=== PATIENT | male | born 1945 | race Caucasian/White ===

== ENCOUNTER 2017-10-22 09:11 | Emergency (ER) | payer OTHER ==
[~2017-10-22] VITALS: Ht 170.2 cm; Wt 67.0 kg
[2017-10-22] MEDS ORDERED: SODIUM CHLORIDE 0.9% 1,000 ML IV ONE (09:40)
[2017-10-22] MEDS ORDERED: MORPHINE SULFATE 4 MG/ML CPJ (NOT FOR IM USE) IV STA (09:40)
[2017-10-22] MEDS ORDERED: ONDANSETRON HCL 4MG/2ML VIAL IV STA (09:40)
[2017-10-22] MEDS ORDERED: LIDOCAINE HCL 1%/EPI 1:200,000 30 ML VIAL MC ONE (09:45)
[2017-10-22] MEDS ORDERED: TETANUS, DIPHTHERIA, PERTUSSIS VAC/PF 0.5ML (>7YR OLD) IM ONE (09:45)
[2017-10-22] MEDS ORDERED: BACITRACIN ZINC OINT UDPKT TOP ONE (09:45)
[2017-10-22 10:00] LABS: BASOPHILS % 0.4 % (0.0-2.0); EOSINOPHILS % 0.4 % (0.0-5.0); HEMATOCRIT. 38.9 % (42.0-52.0); HEMOGLOBIN. 12.9 g/dL (14.0-18.0); LYMPHOCYTES % 12.9 % (20.0-50.0); MEAN CORPUSCULAR HEMOGLOBIN 33.2 pg (28.0-32.0); MEAN CORPUSCULAR VOLUME 100.2 fL (80.0-94.0); MEAN PLATELET VOLUME 8.2 fl (7.4-10.4); MONOCYTES % 7.1 % (2.0-8.0); NEUTROPHILS % 79.2 % (40.0-76.0); PLATELET 155 x1000/uL (130-400); RED BLOOD CELL COUNT 3.89 mill/uL (4.7-6.1); RED CELL DISTRIBUTION WIDTH 13.8 % (11.6-14.6)
[2017-10-22 10:06] LABS: CHLORIDE 107 mEq/L (98-107)
[2017-10-22] MEDS ORDERED: IOHEXOL-300 100 ML BOTTLE ONE (11:16)
[2017-10-22] MEDS ORDERED: MORPHINE SULFATE 4 MG/ML CPJ (NOT FOR IM USE) IV ONE (12:30)
[2017-10-22 14:18] VITALS: BP 139/90
== END 2017-10-22 14:45 | disposition short-term general hospital (02) ==
LOC: ER 09:15
DX: S42.102A Fracture of unspecified part of scapula, left shoulder, initial encounter for closed fracture (principal); S42.101A Fracture of unspecified part of scapula, right shoulder, initial encounter for closed fracture; S22.049A Unspecified fracture of fourth thoracic vertebra, initial encounter for closed fracture; S11.91XA Laceration without foreign body of unspecified part of neck, initial encounter; I10 Essential (primary) hypertension; W11.XXXA Fall on and from ladder, initial encounter; Y93.89 Activity, other specified; Y92.89 Other specified places as the place of occurrence of the external cause; Y99.8 Other external cause status
CPT/HCPCS: 12002; 36415; 70450; 70491; 71045; 72070; 72125; 73030; 80053; 85025; 90471; 90715; 96361; 96374; 96375; 96376; 99285; J2270; J2405; J7030; Q9967